=== PATIENT | male | born 1940 | race Caucasian/White ===

== ENCOUNTER → 2016-10-29 | Outpatient (CLI) | payer OTHER ==
[2016-10-29 10:22] LABS: BASOPHILS # (AUTO) 0.08 10*3/UL; BASOPHILS % (AUTO) 1.3 % (0-1); EOSINOPHILS # (AUTO) 0.12 10*3/UL; HEMOGLOBIN 16.4 g/dL (14.0-18.0); LYMPHOCYTES # (AUTO) 1.54 10*3/uL; MEAN CORPUSCULAR HEMOGLOBIN 31.4 PG (27-31); MEAN CORPUSCULAR HGB CONC 35.7 g/dL (33-37); MEAN PLATELET VOLUME 9.6 FL (7.4-12.2); MONOCYTES # (AUTO) 0.76 10*3/UL (0.3-0.8); MONOCYTES % (AUTO) 12.5 % (5-15); NEUTROPHILS # (AUTO) 3.58 10*3/UL; NEUTROPHILS % (AUTO) 58.7 % (50-80); RED BLOOD COUNT 5.23 10^6/uL (4.70-6.10)
[2016-10-29 10:28] LABS: PLATELET MORPHOLOGY COMMENT NORMAL MORPHOLOGY (NORM); RBC MORPHOLOGY COMMENT NORMAL MORPHOLOGY (NORM); WBC MORPHOLOGY COMMENT NORMAL MORPHOLOGY (NORM)
[2016-10-29 10:47] LABS: CALCIUM 9.9 mg/dL (8.7-10.7); CHOL/HDL RATIO 3.63 RATIO (0-4.0); LDL CHOLESTEROL,CALCULATED 58.2 mg/dL; SERUM ALBUMIN 4.5 g/dL (3.5-4.8)
[2016-10-30 09:56] LABS: PSATOTAL 2.4 ng/mL (<=6.5)
[2016-10-30 13:01] LABS: FREE PSA/PSA RATIO SEE COMMENTS ratio (())
== END ==
LOC: MOB LAB 09:32
PROVIDERS: ATTEND Nurse Practitioner Family
DX: I10 Essential (primary) hypertension (principal); E78.5 Hyperlipidemia, unspecified; N40.0 Benign prostatic hyperplasia without lower urinary tract symptoms
CPT/HCPCS: 36415; 80053; 80061; 84153; 84154; 85025; G0439

== ENCOUNTER → 2016-11-13 | Outpatient (CLI) | payer OTHER | LOC: MMPC 09:00 | PROVIDERS: ATTEND Nurse Practitioner Family | DX: I10 Essential (primary) hypertension (principal); E87.1 Hypo-osmolality and hyponatremia; J30.9 Allergic rhinitis, unspecified | CPT/HCPCS: 99213; G0463 ==

== ENCOUNTER → 2016-12-12 | Outpatient (CLI) | payer OTHER | LOC: MMPC 09:00 | PROVIDERS: ATTEND Nurse Practitioner Family | DX: I10 Essential (primary) hypertension (principal) | CPT/HCPCS: 99213; G0463 ==